=== PATIENT | male | born 1960 | race Hispanic/Latino ===

== ENCOUNTER 2023-02-07 13:15 | Outpatient (CLI) | payer BC | END 2023-02-07 13:16 | disposition home or self-care (01) | LOC: MRI 13:15 | PROVIDERS: ATTEND Nurse Practitioner Family | DX: I62.9 Nontraumatic intracranial hemorrhage, unspecified (principal); G93.89 Other specified disorders of brain; J34.89 Other specified disorders of nose and nasal sinuses | CPT/HCPCS: 70551 ==